=== PATIENT | female | born 1965 | race Caucasian/White ===

== ENCOUNTER 2019-05-17 14:59 | Emergency (ER) | payer BC, OTHER ==
[~2019-05-17] VITALS: Ht 170.2 cm; Wt 72.8 kg
--- NOTE | 2019-05-17 15:55 | NUR ---
PUMP STITCHER: PT TO ROOM FROM [facility]OPE[facility]
[2019-05-17 16:36] LABS: MICROSCOPIC NOT IND
[2019-05-17 16:40] LABS: MEAN CORPUSCULAR HEMOGLOBIN 27.5 pg (27.0-34.8); MEAN CORPUSCULAR HGB CONC 33.3 g/dL (32.4-35.8); MEAN CORPUSCULAR VOLUME 82.5 fL (80-100); PLATELET COUNT 203 x10^3/uL (130-400); RED CELL DISTRIBUTION WIDTH 18.6 % (9.6-15.2)
[2019-05-17 16:43] LABS: CULTURE INDICATED? NO
[2019-05-17 16:50] LABS: ALANINE AMINOTRANSFERASE 24 U/L (12-78); ALBUMIN 3.3 g/dL (3.4-5.0); ANION GAP 7 mmol/L (5-15); CHLORIDE 108 mmol/L (98-107); CREATININE 0.59 mg/dL (0.55-1.02)
[2019-05-17 16:53] LABS: ALKALINE PHOSPHATASE 91 U/L (45-117); BILIRUBIN,TOTAL 0.8 mg/dL (0.2-1.0); TOTAL PROTEIN 7.2 g/dL (6.4-8.2)
[2019-05-17] MEDS ORDERED: morphine SULFATE 10 MG/ML, 1ML IVPush ONE (17:00)
--- NOTE | 2019-05-17 17:00 | NUR ---
pt currently refusing morphine IV. Requested PO pain medication. Discussed with MD and was advised that pt is NPO to R/O Appenditis. Communicated NPO status to pt. MD in to discuss POC with pt.
[2019-05-17 17:01] LABS: MD YES
[2019-05-17 17:03] LABS: BAND#(MANUAL) 0.43 x10^3/uL; BANDS%(MANUAL) 3 % (0-7); EOS#(MANUAL) 0.14 x10^3/uL (0.0-0.4); EOS% (MANUAL) 1 % (1-7); LYMPH#(MANUAL) 1.42 x10^3/uL (1-3.4); LYMPHS% (MANUAL) 10 % (22-44); MONOS% (MANUAL) 12 % (2-9); REACTIVE LYMPHS # (MANUAL) 0.14 x10^3/uL (0-0); REACTIVE LYMPHS % (MANUAL) 1 % (0-0); SEG#(MANUAL) 10.37 x10^3/uL (1.8-6.8); SEGS% (MANUAL) 73 % (42-75)
[2019-05-17 17:04] LABS: <PLATELET ESTIMATE> ADEQUATE; <PLT MORPHOLOGY> NORMAL PLT MORPH; <RBC MORPHOLOGY> NORMAL
[2019-05-17] MEDS ORDERED: MORPHINE SULFATE 4 MG/ML, 1ML ONE (17:18)
[2019-05-17] MEDS ORDERED: OMNIPAQUE 350 MG/ML, 100ML BOTTLE ONE (17:40)
[2019-05-17 18:24] VITALS: BP 139/88
--- NOTE | 2019-05-17 18:25 | NUR ---
Patient/Caregiver given discharge instructions and they have confirmed that they understand the instructions. pt verbalized understanding on how to take medications and that she would get them filled. Patient ambulatory with steady gait. pt left in no distress.
== END 2019-05-17 18:26 | disposition home or self-care (01) ==
LOC: ED 17:08
DX: K52.9 Noninfective gastroenteritis and colitis, unspecified (principal); Z98.51 Tubal ligation status
CPT/HCPCS: 36415; 74177; 80053; 81003; 83690; 85025; 99284; Q9967